=== PATIENT | male | born 1990 | race Caucasian/White ===

== ENCOUNTER → 2020-08-13 08:55 | Outpatient (CLI) | payer OTHER, SELFPAY ==
--- NOTE | ~2020-08-13 | MR_ITS ---
EXAMINATION: MR knee LT wo con DATE: 08/13/2020 09:37 INDICATION: Chronic left knee pain. TECHNIQUE: Magnetic resonance imaging (MRI) of the left knee was performed without intravenous contra st. Sequences included axial PD-weighted FS FSE, coronal PD-weighted FSE and PD-weighted FS FSE, sagi ttal PD-weighted FSE, and sagittal T2-weighted FS FSE. COMPARISON: None. FINDINGS: Medial compartment: Medial meniscus is normal. Medial compartment cartilage is normal. Lateral compartment: Lateral meniscus is normal. The lateral compartment cartilage is normal. Patellofemoral compartment: There is full-thickness fissuring of patellar lateral facet with cartilage undermining and subchondra l cysts and subchondral edema-like marrow signal intensity. There is shallow partial-thickness cartil age loss of patellar medial facet. Trochlear cartilage is normal. Ligaments and tendons: The anterior and posterior cruciate ligaments are normal. Medial collateral ligament and lateral bonny ateral ligament complex are normal. The patellar tendon is normal. Fluid: There is a small knee joint effusion. IMPRESSION: 1. Severe patellar chondrosis. 2. Small knee joint effusion. Reviewed, dictated and finalized at location A.
== END ==
PROVIDERS: PCP Orthopaedic Surgery; Visit Provider Orthopaedic Surgery
DX: M25.562 Pain in left knee (principal); G89.29 Other chronic pain; M22.2X2 Patellofemoral disorders, left knee; M25.462 Effusion, left knee
CPT/HCPCS: 73721